=== PATIENT | male | born 1985 | race Caucasian/White ===

== ENCOUNTER 2022-07-14 08:01 | Emergency (ER) | payer SELFPAY ==
[2022-07-14 08:10] VITALS: BP 105/69; PULSE 74; RESP 16; TEMP 36.1; O2SAT 97; BMI 23.6
[2022-07-14] MEDS: Fluorescein Sodium STRIP 1 STRIP EYE-LEFT (08:22)
[2022-07-14] MEDS: Tetracaine HCl/PF 0.5% Oph Sol 4 ML DROPS 1 DROP EYE-LEFT (08:22)
--- OUTSIDE RECORDS SUMMARY | 2022-07-14 08:23 | XMS_ITS | Continuity of Care Document ---
:1985 Author Organization [facility] Address [address] [place] [address]- Care Team Providers Name Role Phone Shant Stroud MD Primary Care Physician Encounter [facility] NBR [id number] Date(s): 10/23/20 - 11/22/20 [facility] [address] [place], [place] [address] Attending Physician: Brittany Ryder Admitting Physician: Brittany Ryder Referring Physician: Brittany Ryder Allergies, Adverse Reactions, Alerts Substance Reaction Severity Status NKA Active Immunizations Given and Recorded Vaccine Date Status Refusal Reason diphtheria-tetanus toxoids (DT) 02/09/06 Given Medications No Home Meds Maintenance, 04/15/16 16:11:59, Compound Start Date: 04/15/16 Status: Ordered Social History Social History Type Response Smoking Status Smoker, current status unkno wn; Use: Smokes one pack a day; Type: Cigarettes; Number of years: 18; Started at age: 16; entered on: 10/23/20 Sex
--- OUTSIDE RECORDS SUMMARY | 2022-07-14 08:23 | XMS_ITS | Continuity of Care Document ---
:1985 Author Organization [facility] Address [address] [place] [address]- Care Team Providers Name Role Phone Shant Stroud MD Primary Care Physician [id number] Date(s): 10/23/20 - 10/30/20 [facility] [address] [place] [address]- Encounter Diagnosis Well adult exam (Discharge Diagnosis) - 10/23/20 Attending Physician: Shant Stroud MD Allergies, Adverse Reactions, Alerts Substance Reaction Severity Status NKA Active Immunizations Given and Recorded Vaccine Date Status Refusal Reason diphtheria-tetanus toxoids (DT) 02/09/06 Given Medications No Home Meds Maintenance, 04/15/16 16:11:59, Compound Start Date: 04/15/16 Status: Ordered Problem List Diagnosis Diagnosis Type Effective Dates Health Status Clinical In formant Service Well adult exam Discharge 10/23/20 Diagnosis Social History Social History Type Response Smoking Status Smoker, current status unkno wn; Use: Smokes one pack a day; Type: Cigarettes; Number of years: 18; Started at age: 16; entered on: 10/23/20 Sex
--- NOTE | 2022-07-14 08:51 | ED.EYEPROB ---
HPI - Eye Problem General Chief complaint: Eye Problems Stated complaint: FO in eye Time Seen by Provider: 07/14/22 08:16 Source: patient Mode of arrival: ambulatory Limitations: no limitations History of Present Illness HPI Narrative: 37 yo male presents to the ER for evaluation of metal in his left eye since yesterday. He was working on a car yesterday and felt something get in his eye, either metal or epoxy. He can see a small dark spot on his left iris. He dug at it with a Q-tip and tried to get it out but was unsuccessful. His eye has been red, painful and watering since. He states he is sensitive to light. He wears glasses but not contacts. No blurred vision or vision changes. MD chief complaint: eye pain, eye redness and foreign body Onset (ago): day(s) (1) Onset description: sudden Location: left eye Eye Symptoms: redness, pain, foreign body sensation and photophobia Place: home Mechanism: direct trauma Severity: moderate Severity scale (1-10): 6 If Pain, Quality: burning, aching and throbbing Context: trauma Associated symptoms: none Treatments Prior to Arrival: irrigated eye Related Data Patient tetanus UTD: Yes Previous Rx's Medication Instructions Recorded erythromycin 5 mg/gram (0.5 %) eye 0.5 inch ophthalmic (eye) TID #3.5 07/14/22 ointment grams ibuprofen 600 mg tablet 600 mg PO Q8H PRN pain #10 tabs 07/14/22 Allergies Allergy/AdvReac Type Severity Reaction Status Date / Time No Known Allergies Allergy Verified 07/14/22 08:10 Review of Systems Review of Systems: Constitutional: No Fever, No Chills ENT/Mouth: No sore throat, No Rhinorrhea Eyes: + Eye Pain, No Swelling, + Redness, + FB sensation, +Photophobia Cardiovascular: No Chest Pain, No SOB Respiratory: No Cough, No Sputum Gastrointestinal: No Nausea, No Vomiting,No abdominal Pain Skin: No Skin Lesions, No rash Neuro: No Weakness, No Dizziness, No Headache Psych: No Anxiety/Panic, No Depression Heme/Lymph: No Bruising, No Lymphadenopathy PMFSH Social History Social History Advance Directives: No Advance Directives Information Provided: Yes Physical Exam Vital Signs: Vital Signs: Last Vital Signs Temp 97 F 07/14/22 08:10 Pulse 74 07/14/22 08:10 Resp 16 07/14/22 08:10 BP 105/69 07/14/22 08:10 Pulse Ox 97 07/14/22 08:10 O2 Del Method 07/14/22 08:10 BMI result Body Mass Index 23.6 Appearance: Alert. Oriented X3. No acute distress. HEENT: normal periorbital stuctures, no periorbital swelling, lids normal, left eye with diffuse scleral injection, visible punctate dark FB on the iris at the 7 o'clock position. +corneal abrasion, circular around the FB CVS: Normal heart rate and rhythm. Pulses normal. Respiratory: No respiratory distress. Skin: Skin warm and dry. Normal skin color. Normal skin turgor. No rashes. Extremities: normal inspection x4, normal ROM Neuro: Oriented X 3. No motor deficit. No sensory deficit. Course Course Course Narrative: 37 yo male presenting to the ER with FB in the left eye since yesterday. Visible dark punctate FB on iris. Attempts made to remove with magnet, manual removal with needle with improvement however a visible rust ring persists. No changes in his vision. Will start on abx topically and refer to Dr. Sol. Patient agrees with plan. stable for d/c. Discharge Plan Discharge Clinical Impression: Corneal abrasion, Foreign body of left eye Patient Disposition: Home, Self-Care Instructions: Corneal Abrasion (ED), Eye Foreign Body (ED) Additional Instructions: Use the prescribed eye ointment as directed Do not rub or itch your eye Use saline eye drops to keep your eye moist Call Dr. Sol for further evaluation Prescriptions: New erythromycin 5 mg/gram (0.5 %) ointment 0.5 inch ophthalmic (eye) TID Qty: 3.5 0RF ibuprofen 600 mg tablet 600 mg PO Q8H PRN (Reason: pain) Qty: 10 0RF Referrals: Luis Fernanod Sol [Physician] - (FB in left eye, rust ring) Stand Alone Forms: Work/School Release Interventions: ED Discharge Assessment Last Done: 07/14/22 09:01
== END 2022-07-14 09:01 | disposition home or self-care (01) ==
PROVIDERS: Emergency Provider Emergency Medicine
DX: T15.02XA Foreign body in cornea, left eye, initial encounter (principal); Y93.89 Activity, other specified; Y92.810 Car as the place of occurrence of the external cause; Y99.9 Unspecified external cause status
CPT/HCPCS: 65220; 99282; 99283

== ENCOUNTER 2023-06-07 08:03 | Emergency (ER) | payer MEDICAID, SELFPAY ==
--- NOTE | ~2023-06-07 | CT_ITS ---
EXAMINATION: CT CERVICAL SPINE CLINICAL INFORMATION: Reason for Exam trauma COMPARISON: No prior CT available, TECHNIQUE: Computed axial sagittal and coronal images acquired using department's standard protocol. This CT examination was performed using dose optimization techniques as appropriate, variously including the following: *Automated exposure control *Adjustment of mA and/or kV according to patient size (this includes techniques or standardized protocols for targeted exams where dose is matched to indication/reason for exam; i.e. extremities or head) *Use of iterative reconstruction technique CONTRAST: None DLP: 446 mGy-cm FINDINGS: SKULL BASE: Visualized structures at skull base are normal, Included facial sinuses are clear, CERVICAL VERTEBRAE: Seven cervical vertebrae identified maintaining proper height and alignment, DISCS: C1-C2: There is no CT evidence of significant osseous narrowing of the central canal or neural foramen. C2-C3: There is no CT evidence of significant osseous narrowing of the central canal or neural foramen. C3-C4: There is no CT evidence of significant osseous narrowing of the central canal or neural foramen. C4-C5: There is no CT evidence of significant osseous narrowing of the central canal or neural foramen. C5-C6: There is no CT evidence of significant osseous narrowing of the central canal or neural foramen. C6-C7: There is no CT evidence of significant osseous narrowing of the central canal or neural foramen. C7-T1: There is no CT evidence of significant osseous narrowing of the central canal or neural foramen. PARAVERTEBRAL SOFT TISSUE: Paravertebral soft tissues unremarkable. CT/CT cervical spine wo IV con IMPRESSION: No fracture or dislocation. Cervical vertebrae maintaining normal height and alignments.
--- NOTE | ~2023-06-07 | CT_ITS ---
CT head/brain wo IV con CLINICAL INFORMATION: Reason for Exam trauma COMPARISON: No prior CT scan available for comparison. TECHNIQUE: Department standard protocol. This CT examination was performed using dose optimization techniques as appropriate, variously including the following: *Automated exposure control *Adjustment of mA and/or kV according to patient size (this includes techniques or standardized protocols for targeted exams where dose is matched to indication/reason for exam; i.e. extremities or head) *Use of iterative reconstruction technique DLP: 697 mGy-cm FINDINGS: CEREBRAL HEMISPHERES: There is no evidence of intra-axial or extra-axial mass, hemorrhage or acute infarct. BRAIN PARENCHYMA: Normal kumar-white matter differentiation. SUBDURAL SPACE: No bleed. BASAL GANGLIA AND PINEAL GLAND: Unremarkable VENTRICLES: Symmetric and normal in size. CEREBELLUM AND BRAINSTEM: No space-occupying mass, hemorrhage or acute infarct. CEREBELLOPONTINE ANGLES: No lesion found. ORBITS: No intraorbital mass. VESSELS: Unremarkable SKULL BASE: Unremarkable INCLUDED SINUSES AT SKULL BASE: Opacification of a few of the air cells at skull base. SKULL AND SKIN: No fracture or bone lesion found. CT/CT head/brain wo IV con IMPRESSION: No CT evidence of intracranial space-occupying mass, bleed or infarct.
[2023-06-07 08:19] VITALS: BP 127/75; PULSE 63; RESP 19; TEMP 36.6; O2SAT 98; BMI 22.9
[2023-06-07] MEDS: Lidocaine HCl 1 % MPF 5 ML VIAL INFILTRATI (08:51)
--- NOTE | 2023-06-07 09:05 | ED_ITS ---
HPI - Head Injury General Chief complaint: Head Injury Stated complaint: Head lac Time Seen by Provider: 06/07/23 08:43 Source: patient Mode of arrival: ambulatory Limitations: no limitations History of Present Illness HPI Narrative: Pt states that tripped and fell at friend house,he is c/o laceration rt forehead. Complaint: head injury Onset (ago): hour(s) (2) Mechanism of Injury: other (tripped and fell) Place: outdoors Loss of Consciousness: no Location of injury: frontal Severity: moderate Radiation: none Other Injuries: none Related Data Previous Rx's Medication Instructions Recorded erythromycin 5 mg/gram (0.5 %) eye 0.5 inch ophthalmic (eye) TID #3.5 07/14/22 ointment grams ibuprofen 600 mg tablet 600 mg PO Q8H PRN pain #10 tabs 07/14/22 Allergies Allergy/AdvReac Type Severity Reaction Status Date / Time No Known Allergies Allergy Verified 06/07/23 08:19 Review of Systems Constitutional: Constitutional: Reports no additional constitutional complaints ENT: Reports system reviewed and no additional complaints, except as documented Cardiovascular: Cardiovascular: Reports no additional cardiovascular complaints Respiratory: Respiratory: Reports no additional respiratory complaints Neurologic: Reports system reviewed and no additional complaints, except as documented [facility] Social History Social History Advance Directives: No Advance Directives Information Provided: No Physical Exam Vital Signs: Vital Signs: Last Vital Signs Temp 98 F 06/07/23 08:19 Pulse 63 06/07/23 08:19 Resp 19 06/07/23 08:19 BP 127/75 06/07/23 08:19 Pulse Ox 98 06/07/23 08:19 O2 Del Method Room Air 06/07/23 08:19 BMI result Body Mass Index 22.9 Const: Orientation/consciousness: patient oriented x3 HEENT: Other: laceration 4 cm rt forehead Ears: hearing grossly normal bilaterally General nose exam: Normal external nose present Face and sinus: Yes normal facial exam Mouth: Normal oral and palatal mucosa present Teeth and gingiva: dentition normal Throat: Yes posterior oropharynx normal Eyes: Pupils: Equal, round and reactive pupils present Neck: Neck: Yes normal visual inspection and Yes full ROM Chest: Chest palpation & inspection: normal inspection of the chest Resp: Effort & Inspection: normal respiratory effort Auscultation: clear to auscultation bilaterally Cardio: Jugular venous distension: no JVD Rate: regular rate Rhythm: regular rhythm GI: Inspection: Yes normal to inspection Palpation (GI): Soft to palpation, not firm and nontender Percussion: Yes normal to percussion Skin: General skin exam: no rashes or lesions noted Neuro: General: patient oriented x3 and CN's II-XI intact bilaterally Cranial nerves: Yes Equal, round and reactive pupils present Course Reevaluation(s) Reevaluation #1: Remain stable CT scan of the head C-spine negative; wound was repaired ;he is updated for tetanus Time: 11:14 Medications Administered Discontinued Medications Generic Name Dose Route Start Last Admin Trade Name Freq PRN Reason Stop Dose Admin Lidocaine HCl 5 ml 06/07/23 08:45 06/07/23 08:51 Lidocaine Hcl 1 % Mpf 5 Ml Vial INFILTRATI 06/07/23 08:46 5 ml ONCE ONE Administration Medical Decision Making Medical Decision Making [facility] Narrative: Patient presented after a fall sustained a laceration right forehead, will obtain imaging Differential Diagnosis Differential Diagnoses: The differential diagnosis associated with the presentation includes Subdural hematoma/epidural hematoma/concussion Admission/Observation Consideration of admission/observation: Escalation of care including admission/observation considered Independent Interpretation I performed an independent interpretation of an: CT Scan Interpretation: normal ct Radiology Impression Discussion of test interpretation with radiology: I have reviewed the radiologist's reading. Radiologist Impression: e matter differentiation. SUBDURAL SPACE: No bleed. BASAL GANGLIA AND PINEAL GLAND: Unremarkable VENTRICLES: Symmetric and normal in size. CEREBELLUM AND BRAINSTEM: No space-occupying mass, hemorrhage or acute infarct. CEREBELLOPONTINE ANGLES: No lesion found. ORBITS: No intraorbital mass. VESSELS: Unremarkable SKULL BASE: Unremarkable INCLUDED SINUSES AT SKULL BASE: Opacification of a few of the air cells at skull base. SKULL AND SKIN: No fracture or bone lesion found. CT/CT head/brain wo IV con IMPRESSION: ? No CT evidence of intracranial space-occupying mass, bleed or infarct. ? Procedures Laceration Laceration 1: Site: scalp and other (rt forehead) Size (cm): 4 Description: linear Depth: simple, single layer Local Anesthetic: lidocaine 1% Amount of anesthesia used (mL): 2 Pre-repair: wound explored Skin layer closed with: nylon Size (cm): 5-0 Number of sutures: 3 Technique: simple, interrupted Discharge Plan Discharge Clinical Impression: Closed head injury, Forehead laceration Patient Disposition: Home, Self-Care Instructions: Laceration (DC), Head Injury (ED) Additional Instructions: Follow-up with your primary care physician stitches out in about 7-10 days. Prescriptions: No Action erythromycin 5 mg/gram (0.5 %) ointment 0.5 inch ophthalmic (eye) TID Qty: 3.5 0RF ibuprofen 600 mg tablet 600 mg PO Q8H PRN (Reason: pain) Qty: 10 0RF Referrals: Alberto Arzola MD [Primary Care Provider] - 2 days
== END 2023-06-07 11:17 | disposition home or self-care (01) ==
PROVIDERS: Emergency Provider Emergency Medicine; PCP Internal Medicine
DX: S01.81XA Laceration without foreign body of other part of head, initial encounter (principal); S09.90XA Unspecified injury of head, initial encounter; X58.XXXA Exposure to other specified factors, initial encounter; Y93.9 Activity, unspecified; Y92.9 Unspecified place or not applicable; Y99.9 Unspecified external cause status
CPT/HCPCS: 12013; 70450; 72125; 99282; 99284

== ENCOUNTER 2025-05-21 01:24 | Emergency (ER) | payer MEDICAID, SELFPAY ==
--- NOTE | ~2025-05-21 | CT_ITS ---
CLINICAL HISTORY: fall, AMS, etoh, OD CT head without contrast Comparison: CT/SR - CT HEAD WITHOUT IV CONTRAST - 06/07/23 09:31 EDT Findings: Motion artifact limits evaluation of the posterior skull base. No intra-axial mass, midline shift, hydrocephalus, or acute hemorrhage. No significant atrophy-like change or white matter disease. Mastoid air cells are clear. Paranasal sinus disease. Chronic rightward nasal septal deviation. The orbits are unremarkable. There is no acute fracture. IMPRESSION: 1. No acute intracranial findings within the limits of motion artifact at the posterior skull base. This document has been electronically signed by: Rui Foster MD on 05/21/2025 03:29:42
--- NOTE | ~2025-05-21 | XR_ITS ---
CLINICAL HISTORY: sob 1 view chest x-ray Comparison: CT/SR - CT CERVICAL SPINE WITHOUT IV CONTRAST - 06/07/23 09:31 EDT Findings: No consolidation or effusion. Emphysema with left upper lobe bulla. Heart size is normal. No acute fracture. IMPRESSION: Emphysema with left upper lobe bulla. No consolidation or pneumothorax. This document has been electronically signed by: Rui Foster MD on 05/21/2025 03:08:42
--- NOTE | ~2025-05-21 | CT_ITS ---
CLINICAL HISTORY: fall, AMS, etoh, OD CT cervical spine without contrast Comparison: CT/SR - CT CERVICAL SPINE WITHOUT IV CONTRAST - 06/07/23 09:31 EDT Findings: Normal vertebral body alignment. No significant degenerative change. No acute fractures or dislocations. Visualized intracranial contents are unremarkable. No cervical fluid collections or masses. Emphysema with left apical bullae. IMPRESSION: No acute findings. This document has been electronically signed by: Rui Foster MD on 05/21/2025 03:34:04
[2025-05-21 01:31] VITALS: BP 140/98; PULSE 62; O2SAT 96
[2025-05-21 01:32] VITALS: BMI 19.4
--- NOTE | 2025-05-21 01:34 | ECG_ITS ---
Test Reason : od Blood Pressure : */* mmHG Vent. Rate : 41 BPM Atrial Rate : 41 BPM P-R Int : 180 ms QRS Dur : 94 ms QT Int : 464 ms P-R-T Axes : 81 84 71 degrees QTcB Int : 382 ms Marked sinus bradycardia Abnormal ECG No previous ECGs available Referred By: Kassie Haynes Electronically Signed By: KELLEN ARANDA
--- NOTE | 2025-05-21 01:35 | ED_ITS ---
HPI - Overdose General Chief Complaint: ETOH/Substance Use Stated Complaint: OVERDOSE Time Seen by Provider: 05/21/25 01:29 Source: EMS Mode of arrival: EMS Limitations: altered mental status History of Present Illness ED Provider: Dr. Kassie Haynes HPI Narrative: Patient comes to the emergency room via EMS. According to EMS, PD found the patient unresponsive on the floor, given Narcan and the patient woke up immediately. Patient admits that he was in a bar earlier today. Not straight forward answering questions about alcohol or polysubstance consumption. Patient denies any pain anywhere, states that he can not quite get a full breath of air. Otherwise no complaints. Patient denies SI or HI Related Data Previous Rx's ?Medication ?Instructions ?Recorded erythromycin 5 mg/gram (0.5 %) eye 0.5 inch ophthalmic (eye) TID #3.5 07/14/22 ointment grams ibuprofen 600 mg tablet 600 mg PO Q8H PRN pain #10 t abs 07/14/22 Allergies Allergy/AdvReac Type Severity Reaction Status Date / Time No Known Allergies Allergy Verified 05/21/25 01:35 Review of Systems 2 Review of Systems: Under the influence of drugs Yes Other [facility] Past Medical History Medical History (Updated 05/21/25 @ 01:45 by Kassie Haynes MD) Alcohol abuse Polysubstance abuse Social History Social History Advance Directives: No Advance Directives Information Provided: Yes Do you have a plan to hurt others: No Plan Physical Exam 2 Exam: Exam: Appearance: Somnolent but easily arousable Eyes: Pupils equal, round and reactive to light. ENT: Pharynx normal. Neck: Normal inspection. Neck supple. No lymph nodes noted. No crepitus CVS: Normal heart rate and rhythm. Pulses normal. Normal S1 and S2 Respiratory: No respiratory distress. Breath sounds normal. No Wheezing. No rales Abdomen: Soft and nontender. No rigidity. No distention. Skin: Skin warm and dry. Normal skin color. Normal skin turgor. Extremities: No lower extremity edema. No Lacerations. No Rash Neuro: Cranial nerves 2-12 grossly intact Psych: calm, cooperative, under the influence of drugs versus alcohol Vital Signs: Vital Signs: Last Vital Signs Temp 98.7 F 05/21/25 01:41 Pulse 58 05/21/25 05:41 Resp 20 05/21/25 05:41 BP 113/79 05/21/25 05:41 Pulse Ox 99 05/21/25 05:41 O2 Del Method Room Air 05/21/25 05:41 BMI result Body Mass Index 19.4 Course Course Course Narrative: Patient was found by PD, likely overdose and alcohol intoxication Patient denies SI or HI All of patient's labs and imaging pending Once patient becomes more sober, we will assess for sude eval vs detox Patient will be provided with home Narcan upon discharge Reevaluation(s) Reevaluation #1: On re-evaluation the patient is stable, denies any SI or HI does not want any help, he wants to be discharged. Narcan to take home was given to him Time: 08:18 Medical Decision Making Medical Decision Making [facility] Narrative: My interpretation of labs: No significant abnormality in patient's hematology or chemistry, ETOH negative Patient has not provided a urine sample yet Head CT and cervical spine CT did not show any acute abnormality. Patient's vitals stable, oxygen saturation 95% on room air Physician observation started at 03:30 Differential Diagnosis Differential Diagnoses: The differential diagnosis associated with the presentation includes (Alcohol intoxication, polysubstance abuse, overdose) Admission/Observation Consideration of admission/observation: Escalation of care including admission/observation considered (Patient is under physician observation waiting to become more sober) Lab Data MDM Lab Attestation statement: I reviewed the patient's lab results. 05/21/25 01:51 05/21/25 01:51 Labs: Lab Results 05/21/25 Range/Units 01:51 WBC 8.4 (4.8-10.8) X10*3/uL RBC 4.59 L (4.60-5.80) X10*6/uL Hgb 13.3 L (14.0-18.0) g/dl Hct 37.3 L (42.0-52.0) % MCV 81.3 (80.0-98.0) fL MCH 29.0 (27.0-33.0) pg MCHC 35.7 (31.0-36.0) g/dl RDW 12.4 (11.0-16.0) % Plt Count 271 (160-400) X10*3/uL MPV 7.9 L (9.4-12.4) fL Immature Gran % (Auto) 0.2 (0.0-0.4) % Neut % (Auto) 65.5 (45-73) % Lymph % (Auto) 25.7 (20-40) % Seward % (Auto) 7.4 (2-11) % Eos % (Auto) 0.8 (0-4) % Baso % (Auto) 0.4 (0-2) % Lymph # (Auto) 2.2 (1.2-4.9) X10*3/uL Seward # (Auto) 0.6 (0.1-1.2) X10*3/uL Eos # (Auto) 0.1 (0.0-0.4) X10*3/uL Baso # (Auto) 0.0 (0.0-0.2) X10*3/uL Abs Immat Gran (auto) 0.02 (0.00-0.03) X10*3/uL Absolute Neuts (auto) 5.5 (2.0-8.3) x10*3/uL Absolute Nucleated RBC 0.000 (0.0-0.012) X10*3/uL Nucleated RBC % (auto) 0.0 (0.0-0.2) /100WBC Sodium 140 (135-145) mmol/L Potassium 3.5 (3.3-5.1) mmol/L Chloride 102 (96-108) mmol/L Carbon Dioxide 29 (22-29) mmol/L Anion Gap 13 (12-20) BUN 14 (9-16) mg/dL Creatinine 0.98 (0.5-1.4) mg/dL Estim Creat Clear Calc 85.1 Estimated GFR > 60 Random Glucose 96 (60-115) mg/dL Calcium 9.2 (8.4-10.2) mg/dL Magnesium 1.9 (1.6-2.6) mg/dL Total Bilirubin 0.6 (0.0-1.0) mg/dL Direct Bilirubin 0.2 (0.0-0.5) mg/dL AST 28 (5-37) U/L ALT 14 (0-40) U/L Alkaline Phosphatase 70 (39-117) U/L Total Protein 7.0 (6.5-8.0) g/dL Albumin 4.4 (3.5-5.0) g/dL Ethyl Alcohol < 10 mg/dL Radiology Impression Discussion of test interpretation with radiology: I have reviewed the radiologist's reading. Radiologist Impression: Normal vertebral body alignment. No significant degenerative change. No acute fractures or dislocations. Visualized intracranial contents are unremarkable. No cervical fluid collections or masses. Emphysema with left apical bullae. Motion artifact limits evaluation of the posterior skull base. No intra-axial mass, midline shift, hydrocephalus, or acute hemorrhage. No significant atrophy-like change or white matter disease. Mastoid air cells are clear. Paranasal sinus disease. Chronic rightward nasal septal deviation. The orbits are unremarkable. There is no acute fracture. Critical Care Time Critical Care Time Critical Care Time: Yes Total Critical Care Time: 35 Attestation: I have personally provided critical care time. Time includes review of lab data, radiology results, discussion with consultants, and monitoring for potential decompensation. Intervention performed as documented. Discharge Plan Discharge Clinical Impression: Alcoholic intoxication, Overdose Prescriptions: No Action erythromycin 5 mg/gram (0.5 %) ointment 0.5 inch ophthalmic (eye) TID Qty: 3.5 0RF ibuprofen 600 mg tablet 600 mg PO Q8H PRN (Reason: pain) Qty: 10 0RF Print Language: Indonesian
[2025-05-21 01:41] VITALS: BP 135/88; PULSE 53; RESP 15; TEMP 37.1; O2SAT 95
[2025-05-21 01:54] LABS: MANUAL DIFF FLAG NO
[2025-05-21 02:01] LABS: Hematocrit 37.3 % (42.0-52.0); Hemoglobin 13.3 g/dl (14.0-18.0); Imm Gran Abs Auto 0.02 X10*3/uL (0.00-0.03); Imm Gran Pct Auto 0.2 % (0.0-0.4); Lymphocytes Absolute Auto 2.2 X10*3/uL (1.2-4.9); Mean Corpuscular HGB Conc 35.7 g/dl (31.0-36.0); Mean Corpuscular Hemoglobin 29.0 pg (27.0-33.0); Mean Corpuscular Volume 81.3 fL (80.0-98.0); NRBC Abs Auto 0.000 X10*3/uL (0.0-0.012); NRBC Pct Auto 0.0 /100WBC (0.0-0.2); Platelet Count 271 X10*3/uL (160-400); Red Blood Count 4.59 X10*6/uL (4.60-5.80); White Blood Count 8.4 X10*3/uL (4.8-10.8)
[2025-05-21 02:10] LABS: Alanine Aminotransferase 14 U/L (0-40); Albumin Level 4.4 g/dL (3.5-5.0); Alkaline Phosphatase 70 U/L (39-117); Anion Gap 13 (12-20); Aspartate Amino Transferase 28 U/L (5-37); Blood Urea Nitrogen 14 mg/dL (9-16); Calcium 9.2 mg/dL (8.4-10.2); Carbon Dioxide 29 mmol/L (22-29); Chloride 102 mmol/L (96-108); Creatinine Clr Calc Pharmacy 85.1; Estimated Glomerular Filt Rate > 60; Magnesium 1.9 mg/dL (1.6-2.6); Potassium 3.5 mmol/L (3.3-5.1); Sodium 140 mmol/L (135-145); Total Protein 7.0 g/dL (6.5-8.0)
[2025-05-21 05:41] VITALS: BP 113/79; PULSE 58; RESP 20; O2SAT 99
[2025-05-21 08:21] VITALS: BP 101/64; PULSE 68; RESP 17; O2SAT 96
[2025-05-21] MEDS: Naloxone HCl Nasal TAKE HOME 4 MG SPRAY 8 MG NOSTRILALT (08:28)
[2025-05-21 08:32] VITALS: BP 101/64; PULSE 68; RESP 17; TEMP 37.1; O2SAT 96
== END 2025-05-21 08:39 | disposition home or self-care (01) ==
PROVIDERS: Emergency Provider Emergency Medicine
DX: F10.129 Alcohol abuse with intoxication, unspecified (principal); R00.1 Bradycardia, unspecified; R41.82 Altered mental status, unspecified; T51.0X1A Toxic effect of ethanol, accidental (unintentional), initial encounter; Y92.9 Unspecified place or not applicable; Z51.81 Encounter for therapeutic drug level monitoring; Z79.899 Other long term (current) drug therapy
CPT/HCPCS: 36415; 70450; 71045; 72125; 80048; 80076; 80307; 83735; 85025; 93005; 99284

== ENCOUNTER → 2025-05-21 01:32 | Outpatient (BNV) | payer MEDICAID, SELFPAY | PROVIDERS: Emergency Provider Emergency Medicine; Visit Provider Student in an Organized Health Care Education/Training Program | DX: R41.82 Altered mental status, unspecified (principal); F10.20 Alcohol dependence, uncomplicated; J43.9 Emphysema, unspecified; W19.XXXA Unspecified fall, initial encounter | CPT/HCPCS: 70450; 71045; 72125 ==

== ENCOUNTER → 2025-05-21 01:34 | Outpatient (BNV) | payer MEDICAID, SELFPAY | PROVIDERS: Emergency Provider Emergency Medicine; Visit Provider Internal Medicine | DX: R00.1 Bradycardia, unspecified (principal) | CPT/HCPCS: 93010 ==